=== PATIENT | female | born 1955 | race Caucasian/White ===

== ENCOUNTER 2018-09-24 08:13 | Emergency (ER) | payer SELFPAY ==
[~2018-09-24] VITALS: Ht 170.2 cm; Wt 138.3 kg
--- OUTSIDE RECORDS SUMMARY | 2018-09-24 08:15 | XMS REPORT | Summary of Care ---
Author Author Marshall Molian M.A. Organization Unknown Address Unknown Phone Unavailable Care Team Providers Care [employer] Teacher Name Role Phone HARI BOYKIN M.D. Unavailable Unavailable LILLIE PERKINS D.O. Unavailable Unavailable DOC FATIMA MD Unavailable Unavailable LILLIE NAYAK W Unavailable Unavailable Functional Status Name Dates Details Functional status health issues are not documented Status: Name Dates Details Cognitive status health issues are not documented Status: Problems Name Dates Details Knee pain (719.46, M25.569) Status: Active Medications Name Dates Details Diclofenac Sodium 1 % Transdermal Gel APPLY TO LOWER EXTREMITIES, 4 GM OF GEL TO AFFECTED AREA 4 TIMES DAILY. DO NOT APPLY MORE THAN 16 GM DAILY TO ANY ONE AFFECTED JOINT. Quantity: 1 ASHUTOSHIVON Mitchell, HARI * Start : 09-Dec-2015 Active Meloxicam 7.5 MG Oral Tablet ONE TAB PO BID WITH FOOD * Quantity: 60 Refills: 2 ASHUTOSH Vernon., HARI * Start : 09-Dec-2015 Active Allergies and Adverse Reactions Name Dates Details Allergy history not documented Status: Procedures Procedure Dates Details Procedures not documented Immunization Name Dates Details Immunizations not documented Social History Name Dates Details Unknown if ever smoked Vital Signs Date Test Result Details [id number] BP Systolic 166 mm[Hg] Status: BP Diastolic 80 mm[Hg] Status: Weight 302 lb Status: Temperature 97.2 f Status: Heart Rate 65 /min Status: Results Date Description Value Details Results not documented Plan of Care Name Dates Details Planned Observations Planned Goals not documented Instructions Name Dates Details Instructions not documented Encounters Appointment; LILLIE PERKINS D.O. Encounter Diagnosis: Problem not documented On: 21-May-2018 14:30
--- NOTE | 2018-09-24 09:07 | Diagnostic Imaging Report ---
Exam: Left knee series; 3 views History: Pain Comparison: None available Findings: There is severe tricompartmental narrowing with osteophytosis. Most severe joint space narrowing is in the medial compartment and patellofemoral compartment. Small joint effusion is also present. No fracture or dislocation. Impression: Severe tricompartmental degenerative disease. Signed by: Dr. Morgan Salmeron DO on 09/24/2018 9:03 AM
== END 2018-09-24 09:40 | disposition home or self-care (01) ==
LOC: ER 08:13
DX: S01.511A Laceration without foreign body of lip, initial encounter (principal); S80.02XA Contusion of left knee, initial encounter; I10 Essential (primary) hypertension; W01.0XXA Fall on same level from slipping, tripping and stumbling without subsequent striking against object, initial encounter
CPT/HCPCS: 99283